=== PATIENT | female | born 1995 | race African-American/Black ===

== ENCOUNTER 2023-01-12 06:01 | Emergency (ER) | payer MEDICAID, SELFPAY ==
[2023-01-12 06:11] VITALS: BP 133/76; PULSE 93; RESP 18; TEMP 36.6; O2SAT 95; BMI 26.6
[2023-01-12 06:54] LABS: MANUAL DIFF FLAG NO
[2023-01-12 06:55] LABS: Basophils Percent Auto 0.2 % (0-2); Eosinophils Percent Auto 0.3 % (0-4); Hematocrit 41.3 % (37.0-47.0); Hemoglobin 13.6 g/dl (12.0-16.0); Imm Gran Abs Auto 0.06 X10*3/uL (0.00-0.03); Imm Gran Pct Auto 0.4 % (0.0-0.4); Lymphocytes Percent Auto 13.4 % (20-40); Mean Corpuscular HGB Conc 32.9 g/dl (31.0-35.0); Mean Corpuscular Hemoglobin 29.6 pg (27.0-33.0); Mean Corpuscular Volume 89.8 fL (80.0-98.0); Mean Platelet Volume 9.1 fL (9.4-12.3); Monocytes Absolute Auto 0.8 X10*3/uL (0.1-1.2); Neutrophils Percent Auto 80.7 % (45-73); Platelet Count 357 X10*3/uL (160-400); Red Cell Distribution Width 13.1 % (11.0-16.0); White Blood Count 14.9 X10*3/uL (4.8-10.8)
--- NOTE | 2023-01-12 07:09 | ED.ABDPAIN ---
HPI - Abdominal Pain General Chief Complaint: Abdominal Pain Stated Complaint: abd and back pain Time Seen by Provider: 01/12/23 06:37 Source: patient and family (Mother, Patricia) Mode of arrival: ambulatory Limitations: no limitations History of Present Illness HPI narrative: 27 year old female who presents emergency department for evaluation abdominal and back pain. Patient states that she had an [place] cold cut sandwich for dinner and 16:00 hours. She states that several hours after eating the sandwich she had a gradual onset abdominal pain which she describes as a sharp pain. It became worse around 23:00 hours. She states the pain improved at around 02:00 hours. When she woke up this morning at 05:00 hours the pain had returned. She states that she is currently having a sharp pressure-like pain in her epigastric area, umbilical area and mid and left back. She had a similar pain on 01/08/2023 and a similar pain in October of 2022. She denied fever, chills, rhinorrhea, sore throat, cough, chest pain, shortness of breath, dyspnea on exertion. She did have associated nausea but no vomiting or diarrhea. She has not noticed any dark black stools or bloody stools. She denied frequency, urgency or dysuria. She did not take any medications for her pain. She has no medical problems and has had no surgeries. Related Data Allergies Allergy/AdvReac Type Severity Reaction Status Date / Time No Known Allergies Allergy Verified 01/12/23 07:10 Review of Systems Review of Systems Yes all other systems are reviewed and are negative [facility] Past Medical History [facility] Narrative: Past medical history: None. Past surgical history: None. Social history: She denies tobacco use. She rarely drinks alcohol she last drank alcohol 2 weeks prior. She denies drug use. Social History Social History Alcohol intake: current Alcohol intake frequency: a few times a month Alcohol type: hard liquor Smoked in Last 30 Days: No Use of substances other than those prescribed or required for medical reasons: No Advance Directives: No Advance Directives Information Provided: Yes Patient : No Physical Exam ED Vital Signs: Vital Signs - 24 hr 01/12/23 06:11 01/12/23 07:24 01/12/23 12:12 Temperature 97.9 F 97.7 F Pulse Rate 93 90 81 Respiratory Rate 18 16 14 Blood Pressure 133/76 138/81 135/79 Pulse Oximetry 95 100 98 Oxygen Delivery Method Room Air Room Air Room Air BMI result Body Mass Index 26.6 Const Other: Well-appearing female patient, pleasant, cooperative, does not appear to be in distress, answers all questions appropriately Orientation/consciousness: oriented to person and oriented to place HENAR Head: Yes normal to inspection, Yes normocephalic and Yes atraumatic Ears: external ears normal General nose exam: Normal external nose present Face and sinus: Yes normal facial exam Mouth: Normal oral and palatal mucosa present Throat: Yes posterior oropharynx normal Eyes General: appearance normal, both eyes and all related structures Pupils: Equal, round and reactive pupils present Neck Neck: Yes normal visual inspection, Yes no lymphadenopathy, Yes trachea midline and Yes supple Chest Chest palpation & inspection: normal inspection of the chest and normal palpation of entire chest wall Resp Effort & Inspection: normal respiratory effort and able to speak in complete sentences Auscultation: clear to auscultation bilaterally Cardio Rate: regular rate Rhythm: regular rhythm Heart sounds: S1 normal heart sound present, S2 normal heart sound present and no murmurs GI Other: Abdomen is soft, the patient has mild epigastric, left upper and left lower quadrant tenderness. There is no right upper quadrant or right lower quadrant tenderness. Patient has normoactive bowel sounds with no rebound, no voluntary or involuntary guarding General: Yes no CVA tenderness Back/Spine/Pelvis Back: no CVA tenderness Skin General skin exam: no rashes or lesions noted Neuro General: oriented to person and oriented to place Cranial nerves: Yes Equal, round and reactive pupils present Cognition (Neuro): normal cognition Motor exam (neuro): 5/5 motor strength present throughout Extrem General: Yes normal to inspection Psych Appearance: grossly normal Speech and movement: Normal speech and movement present Affect: normal affect Attitude: cooperative Medical Decision Making Medical Decision Making MDM Narrative: 27-year-old female who presents emergency department for evaluation left flank, left back, epigastric and left lower quadrant abdominal pain that came on gradually at 16 100 hours, the pain is been sharp and intermittent. The pain resolved at 02:00 hours but returned at 05:00 hours. She states the pain was 10 out 10 at its worst. Patient's vital signs were normal. Patient had mild left CVA tenderness, epigastric tenderness, left upper and left lower quadrant tenderness. I ordered the following tests on the patient: CBC, BMP, liver panel, lipase, urinalysis, quantitative beta-hCG, CT scan of the abdomen pelvis without IV contrast. Patient will be treated with normal saline IV x1 L, Zofran 4 mg IV and Toradol 15 mg IV. 0954: The patient's pain improved with the above treatment. Patient's abdominal exam is still consistent with epigastric and left-sided abdominal tenderness Laboratory evaluation [place] [address] and negative test otherwise unremarkable. CT scan revealed mild gallbladder wall thickening and 4.3 cm left ovarian cyst. I ordered right upper quadrant ultrasound and duplex ultrasound pelvis to rule out ovarian torsion 1413: The patient pelvic ultrasound was consistent with a ovarian cyst with no other acute findings, no torsion The patient's right upper quadrant ultrasound is consistent with acute cholecystitis. The patient is currently pain-free with no abdominal tenderness. I did discuss over tiger text the patient's presentation and did text the abdominal ultrasound reading to our on-call surgeon Dr. Fish He recommended the patient stay on a nonfat diet and to schedule an appointment. Patient was given printed and verbal instructions and discharged home. She was advised return emergency department for symptoms get worse or should help these symptoms that were concerning to her. Differential Diagnosis Differential Diagnoses: The differential diagnosis associated with the presentation includes Differential diagnosis includes but is not limited to renal colic, renal stone, colitis, diverticulitis, appendicitis, cholecystitis Admission/Observation Consideration of admission/observation: Escalation of care including admission/observation considered Consult Healthcare Provider Management of the patient was discussed with: Oracle Sql Developer (Covering surgeon, Dr. Fish) Lab Data MDM Lab Attestation statement: I reviewed the patient's lab results. My interpretation patient's laboratory evaluation is as follows: Elevated white blood count [id number] could represent infectious/inflammatory process verses demargination secondary to pain. Comprehensive metabolic panel was unremarkable. Lipase was normal. Urine test was normal. 01/12/23 06:50 01/12/23 06:50 Labs: Lab Results 01/12/23 01/12/23 01/12/23 Range/Units 06:50 06:50 08:10 WBC 14.9 H (4.8-10.8) X10*3/uL RBC 4.60 (4.20-5.50) X10*6/uL Hgb 13.6 (12.0-16.0) g/dl Hct 41.3 (37.0-47.0) % MCV 89.8 (80.0-98.0) fL MCH 29.6 (27.0-33.0) pg MCHC 32.9 (31.0-35.0) g/dl RDW 13.1 (11.0-16.0) % Plt Count 357 (160-400) X10*3/uL MPV 9.1 L (9.4-12.3) fL Immature Gran % (Auto) 0.4 (0.0-0.4) % Neut % (Auto) 80.7 H (45-73) % Lymph % (Auto) 13.4 L (20-40) % Cabell % (Auto) 5.0 (2-11) % Eos % (Auto) 0.3 (0-4) % Baso % (Auto) 0.2 (0-2) % Lymph # (Auto) 2.0 (1.2-4.9) X10*3/uL Cabell # (Auto) 0.8 (0.1-1.2) X10*3/uL Eos # (Auto) 0.0 (0.0-0.4) X10*3/uL Baso # (Auto) 0.0 (0.0-0.2) X10*3/uL Abs Immat Gran (auto) 0.06 H (0.00-0.03) X10*3/uL Absolute Neuts (auto) 12.0 H (2.0-8.3) x10*3/uL Absolute Nucleated RBC 0.000 (0.0-0.012) X10*3/uL Nucleated RBC % (auto) 0.0 (0.0-0.2) /100WBC Sodium 140 (135-145) mmol/L Potassium 3.8 (3.3-5.1) mmol/L Chloride 106 (96-108) mmol/L Carbon Dioxide 24 (22-29) mmol/L Anion Gap 14 (12-20) BUN 8 L (9-16) mg/dL Creatinine 0.81 (0.5-1.4) mg/dL Estim Creat Clear Calc 102.3 Estimated GFR > 60 Random Glucose 105 (60-115) mg/dL Calcium 9.6 (8.4-10.2) mg/dL Total Bilirubin 0.5 (0.0-1.0) mg/dL Direct Bilirubin 0.1 (0.0-0.5) mg/dL AST 29 (5-31) U/L ALT 40 H (0-31) U/L Alkaline Phosphatase 75 (39-117) U/L Total Protein 8.3 H (6.5-8.0) g/dL Albumin 4.2 (3.5-5.0) g/dL Lipase 25 (8-78) U/L Beta HCG, Quant < 2 mIU/mL Urine Color Urine Appearance Urine pH (5.0-9.0) Ur Specific Troy (1.005-1.025) Urine Protein (Neg-Trace) mg/dL Urine Glucose (UA) (Negative) mg/dL Urine Ketones (Negative) mg/dL Urine Blood (Negative) Urine Nitrite (Negative) Ur Leukocyte Esterase (Negative) Urine RBC (0-2) /HPF Urine WBC (0-5) /HPF Ur Squamous Epith Cells (0-2) /HPF Urine Bacteria (None Seen) Hyaline Casts (0-2) /LPF 01/12/23 Range/Units 08:38 WBC (4.8-10.8) X10*3/uL RBC (4.20-5.50) X10*6/uL Hgb (12.0-16.0) g/dl Hct (37.0-47.0) % MCV (80.0-98.0) fL MCH (27.0-33.0) pg MCHC (31.0-35.0) g/dl RDW (11.0-16.0) % Plt Count (160-400) X10*3/uL MPV (9.4-12.3) fL Immature Gran % (Auto) (0.0-0.4) % Neut % (Auto) (45-73) % Lymph % (Auto) (20-40) % Cabell % (Auto) (2-11) % Eos % (Auto) (0-4) % Baso % (Auto) (0-2) % Lymph # (Auto) (1.2-4.9) X10*3/uL [place]ell # (Auto) (0.1-1.2) X10*3/uL Eos # (Auto) (0.0-0.4) X10*3/uL Baso # (Auto) (0.0-0.2) X10*3/uL Abs Immat Gran (auto) (0.00-0.03) X10*3/uL Absolute Neuts (auto) (2.0-8.3) x10*3/uL Absolute Nucleated RBC (0.0-0.012) X10*3/uL Nucleated RBC % (auto) (0.0-0.2) /100WBC Sodium (135-145) mmol/L Potassium (3.3-5.1) mmol/L Chloride (96-108) mmol/L Carbon Dioxide (22-29) mmol/L Anion Gap (12-20) BUN (9-16) mg/dL Creatinine (0.5-1.4) mg/dL Estim Creat Clear Calc Estimated GFR Random Glucose (60-115) mg/dL Calcium (8.4-10.2) mg/dL Total Bilirubin (0.0-1.0) mg/dL Direct Bilirubin (0.0-0.5) mg/dL AST (5-31) U/L ALT (0-31) U/L Alkaline Phosphatase (39-117) U/L Total Protein (6.5-8.0) g/dL Albumin (3.5-5.0) g/dL Lipase (8-78) U/L Beta HCG, Quant mIU/mL Urine Color Yellow Urine Appearance Clear Urine pH 6.0 (5.0-9.0) Ur Specific [place] 1.010 (1.005-1.025) Urine Protein Negative (Neg-Trace) mg/dL Urine Glucose (UA) Negative (Negative) mg/dL Urine Ketones Negative (Negative) mg/dL Urine Blood Negative (Negative) Urine Nitrite Negative (Negative) Ur Leukocyte Esterase Trace H (Negative) Urine RBC 0-2 (0-2) /HPF Urine WBC 0-5 (0-5) /HPF Ur Squamous Epith Cells 6-10 (0-2) /HPF Urine Bacteria None Seen (None Seen) Hyaline Casts 0-2 (0-2) /LPF Independent Interpretation I performed an independent interpretation of an: CT Scan Radiology Impression Discussion of test interpretation with radiology: I have reviewed the radiologist's reading. Radiologist Impression: CT abdomen pelvis w IV con IMPRESSION: 1. 4.3 cm left adnexal cystic lesion. Consider pelvic ultrasound for further evaluation. 2. Trace gallbladder wall thickening, unclear etiology, consider right upper quadrant ultrasound for further evaluation. 3. No renal calculi or hydronephrosis. Fleischner guidelines were followed. Dictated By:Brigitte Herman MD US ABDOMEN LIMITED for gallbladder and common bile duct only. Provider. CLINICAL INFORMATION: Right upper quadrant and epigastric tenderness. Rule out biliary disease.. COMPARISON: CT abdomen of same day. TECHNIQUE: Real-time imaging of the right upper quadrant abdominal viscera. FINDINGS: GALLBLADDER: The gallbladder wall is thickened to approximate 7 mm in diameter and there is some fluid seen within the gallbladder wall. No pericholecystic fluid is appreciated. Cholelithiasis is present with a 1.8 x 0.9 x 1.3 cm calculus at the neck. About the fundus of the gallbladder there is a hyperechoic structure without internal vascularity measuring approximately 8 x 6 x 9 mm in size which may represent some adherent sludge. No definite tenderness to palpation was elicited however I do not know if patient may have been medicated prior to study. COMMON BILE DUCT: Normal in caliber measuring 0.4 cm in diameter. US/US abdomen limited IMPRESSION: Findings consistent with acute cholecystitis. Dictated By:Feliz Mccann MD US pelvic and transvaginal IMPRESSION: 4.5 cm maximum dimension simple left ovarian cyst. No evidence of ovarian torsion. Small amount of free fluid about the right adnexa. Dictated By:Feliz Mccann MD Independent Historian Clinical information obtained from an independent historian. History obtained from or confirmed by: Parent Medications Administered Discontinued Medications Generic Name Dose Route Start Last Admin Trade Name Freq PRN Reason Stop Dose Admin Sodium Chloride 1,000 mls @ 999 mls/hr 01/12/23 07:19 01/12/23 08:49 Ns IV 01/12/23 08:19 Infused .Q1H1M STA Infusion Iohexol 85 ml 01/12/23 08:59 01/12/23 09:00 Iohexol 350 Mg/Ml 100 Ml Infus..Btl IV 01/12/23 09:00 85 ml ONCE ONE Administration Ketorolac Tromethamine 15 mg 01/12/23 07:19 01/12/23 07:38 Ketorolac Tromethamine 15 Mg/Ml Vial IVPUSH 01/12/23 07:20 15 mg ONCE STA Administration Ondansetron HCl 4 mg 01/12/23 07:19 01/12/23 07:39 Ondansetron Hcl 4 Mg/2 Ml Vial IVPUSH 01/12/23 07:20 4 mg ONCE ONE Administration Discharge Plan Discharge Clinical Impression: Acute cholecystitis, Gallstone Patient Disposition: Home, Self-Care Instructions: Cholecystitis (ED), Low Fat Diet (ED) Additional Instructions: Your blood work was unremarkable. Your ultrasound of your pelvis revealed a left ovarian cyst. This will need to be followed up by your brake coupler dinkey. If you do not have a brake coupler dinkey you can see our brake coupler dinkey, Dr. Allen. Your ultrasound of your abdomen is consistent with inflammation of your gallbladder wall and gallstones. I did speak to our on-call surgeon, Dr. Fish. He wants you to stay on a low-fat diet. Call his office on Saturday morning and he will see you as an outpatient to discuss removing her gallbladder. Take ibuprofen 200 mg pills, 2 pills every 6 hours as needed for pain. Take Tylenol (acetaminophen) 500 mg pills, 2 pills every 6 hours as needed for pain. Please return to the emergency department if your symptoms get worse or if you develop any symptoms that are concerning to you. Referrals: Johan Fish MD [Physician] - 3 days (Cholecystitis with gallstones) Andres Allen MD [Physician] - 2 weeks (4.3 cm left ovarian cyst follow-up)
[2023-01-12 07:18] LABS: Alanine Aminotransferase 40 U/L (0-31); Albumin Level 4.2 g/dL (3.5-5.0); Alkaline Phosphatase 75 U/L (39-117); Anion Gap 14 (12-20); Aspartate Amino Transferase 29 U/L (5-31); Bilirubin Direct 0.1 mg/dL (0.0-0.5); Bilirubin Total 0.5 mg/dL (0.0-1.0); Blood Urea Nitrogen 8 mg/dL (9-16); Calcium 9.6 mg/dL (8.4-10.2); Carbon Dioxide 24 mmol/L (22-29); Chloride 106 mmol/L (96-108); Creatinine Clr Calc Pharmacy 102.3; Estimated Glomerular Filt Rate > 60; Glucose Random 105 mg/dL (60-115); Lipase 25 U/L (8-78); Potassium 3.8 mmol/L (3.3-5.1); Sodium 140 mmol/L (135-145); Total Protein 8.3 g/dL (6.5-8.0)
[2023-01-12 07:24] VITALS: BP 138/81; PULSE 90; RESP 16; TEMP 36.5; O2SAT 100
[2023-01-12] MEDS: Ketorolac Tromethamine 15 MG/ML VIAL IVPUSH (07:38)
[2023-01-12] MEDS: 0.9 % Sodium Chloride 1,000 ML 999 ML IV (07:39)
[2023-01-12] MEDS: ondansetron HCL 4 MG/2 ML VIAL IVPUSH (07:39)
--- NOTE | 2023-01-12 07:44 | PC.NURSE ---
pt a&o x 3, skin appropriate for ethnicity, respirations even and unlabored. reports upper abdominal pain that radiates into lower back that gets worse with food. abdomen non tender with active bowel sounds in all 4 quadrants.
[2023-01-12] MEDS: iohexoL 350 MG/ML 100 ML INFUS..BTL 85 ML IV (09:00)
[2023-01-12 12:12] VITALS: BP 135/79; PULSE 81; RESP 14; O2SAT 98
== END 2023-01-12 14:45 | disposition home or self-care (01) ==
PROVIDERS: Emergency Provider Emergency Medicine Emergency Medical Services
DX: K80.00 Calculus of gallbladder with acute cholecystitis without obstruction (principal)
CPT/HCPCS: 36415; 74177; 76705; 76830; 76856; 80048; 80076; 81001; 83690; 84702; 85025; 93975; 96361; 96374; 96375; 99284; 99285; J1885; J2405; Q9967

== ENCOUNTER → 2023-01-17 13:51 | Outpatient (BNVA) | payer MEDICAID, SELFPAY | PROVIDERS: Visit Provider Surgery | DX: K80.00 Calculus of gallbladder with acute cholecystitis without obstruction (principal) | CPT/HCPCS: 99202 ==

== ENCOUNTER 2023-01-21 07:52 | Day surgery (SDC) | payer MEDICAID, SELFPAY ==
[2023-01-21] VITALS (9 sets, daily range): BP systolic 112–139; BP diastolic 43–84; PULSE 67–94; RESP 16–18; TEMP 36.7–37.2; O2SAT 94–98; BMI 32.8
--- NOTE | 2023-01-21 08:27 | PC.NURSE ---
Dr. Fish aware that patient had 600 mg Motrin HS and approx. EOD prior. Okay to proceed.
--- NOTE | 2023-01-21 08:57 | HO.ANESPROP2 ---
HPI - Anesthesia Eval Consult details Narrative: 27 yo F presenting for lap john. Negative urine HCG today. PMFSH Active Problems Active Problems: All Active Problems (Updated 01/17/23 @ 14:33 by Johan Fish MD) Cholecystitis, acute with cholelithiasis (Acute) Past Medical History Functional capacity: independent ambulation Family History Family History Maternal Grandfather Prostate cancer Family history of problems with anesthesia: No Surgical History History of Problems with Anesthesia: No Social History Social History Alcohol intake: current Alcohol intake frequency: a few times a month Alcohol type: hard liquor Patient Tobacco Use Status: Never used Tobacco Are you DNR?: No Advance Directives: No Advance Directives Information Provided: Yes Nutrition Risks: No Nutritional Risk FDLMP: finished yesterday Meds Allergies Allergy/AdvReac Type Severity Reaction Status Date / Time No Known Allergies Allergy Verified 01/17/23 14:09 Active Medications: Current Medications Lactated Ringer's (Lr) 1,000 mls @ 100 mls/hr IVCONT .Q10H JAYDEN Last Admin: 01/21/23 08:11 Dose: 100 mls/hr Home Medications Medication Instructions Recorded Confirmed Last Taken Type No Known Home Meds 01/17/23 01/17/23 Unknown History Exam Exam Date and Time: January 21, 2023 0857 Height,Weight and Vital Signs: Height 5 ft 5 in Weight 89.358 kg Last Vital Signs Temp 98.2 F 01/21/23 08:19 Pulse 94 01/21/23 08:19 Resp 18 01/21/23 08:19 BP 115/82 01/21/23 08:19 Pulse Ox 98 01/21/23 08:19 O2 Del Method Room Air 01/21/23 08:19 Pertinent Lab Results Pertinent Lab Results: Laboratory Tests 01/21/23 Unknown Urine Test NEGATIVE Airway Mallampati Class: I TM Dist: >3cm Neck ROM: Full Loose/Missing/Broken Teeth: Yes (Broken molar right lower jaw) Heart: S1S2 Lungs: CTAB Assessment and Plan Assessment Anesthesia Assessment: Anesthesia Plan Discussed and Chart Reviewed Final Anesthetic Review Family History of Problems with Anesthesia: No History of Problems with Anesthesia: No NPO: Yes ASA Class: II Final Preanesthetic Review: No Changes in Pt Med Stat, Meds/Allgs Chart Reviewed, Consent Obtained/Reviewed and Anes Risks/Benef Reviewed Patient Risk: Low Procedure Risk: Low Anesthetic Plan Anesthetic Plan: GA and Agree w/ Assess. and Plan Disposition: Standard PACU
--- NOTE | 2023-01-21 10:22 | W.PM.OPN ---
Operative Note Operative Note Date of Service: 01/21/23 Narrative: Preoperative diagnosis: Acute cholecystitis Postoperative diagnosis: Same Procedure: Laparoscopic cholecystectomy Surgeon: Johan Fish MD Clay Roaster: DALTON Wetzel Anesthesia: General endotracheal Indications for procedure: 27-year-old female patient presenting with acute onset of abdominal pain in the right upper quadrant multiple episodes. The pain radiates to the back associated with food intake. workup with ultrasound revealed gallstones within the neck of the gallbladder. Operative findings: Evidence of gallbladder inflammation with adhesions to the undersurface of the gallbladder. Single large gallstone at the base of the gallbladder. Specimen: gallbladder Estimated blood loss: Less than 1 mL Complications: non Procedure details: Patient was brought to the OR and placed in a supine position. After administering general anesthesia the patient's abdomen was prepped with ChloraPrep and draped in a sterile fashion. Local anesthesia consisting of 0.5% Sensorcaine without epinephrine was infiltrated in a periumbilical region. A 5 mm incision was made above the umbilicus in a transverse fashion. The Veress needle was then inserted while elevating abdominal cavity with towel clips. After positive drop test the abdomen was insufflated to a pressure of 15 mm of mercury. The Veress needle was then removed and a 5 mm trocar inserted. The camera was inserted in the abdomen explored. A 12 mm trocar was then placed in the epigastrium. Two 5 mm trocars placed in the right upper quadrant by the registrar assistant. The patient was placed in reverse Trendelenburg positioning and rotated to the left. The gallbladder was grasped with the fundus and retracted cephalad by the registrar assistant. The infundibulum was then grasped and retracted away from the liver bed, also by the registrar assistant. The Dolphin dissected was then used by the surgeon to dissect the peritoneum off the infundibulum to reveal the junction with the cystic duct. Cystic artery was noted slightly medial and posterior to the cystic duct. After obtaining a critical view the cystic duct was doubly clipped and divided. The cystic artery was then doubly clipped and divided. The gallbladder was then dissected off the liver bed using electrocautery with an L hook. Hemostasis was assured all times using the electrocautery. When the gallbladder is completely dissected off the liver bed was placed in an Endo-Catch bag and brought out through the epigastric incision. The gallbladder was sent to pathology for further examination. The abdomen was then re-examined. The liver bed was irrigated and suctioned dry. No bleeding or bile leak could be identified. CO2 was then evacuated and all trocars removed. Fascia was closed at the epigastric incision using a [id number] Polysorb suture. Skin was closed in all incisions using a subcuticular 4 0 Polysorb suture by both the surgeon and registrar assistant. Sterile dressings consisting of Steri-Strips, 2 x 2 gauze, and Tegaderm were then applied. The patient tolerated the procedure well. Sponge instrument and needle counts reported as correct. The patient was transferred to PACU in stable condition.
== END 2023-01-21 12:21 | disposition home or self-care (01) ==
PROVIDERS: Visit Provider Surgery
PROC: 0FT44ZZ Resection of Gallbladder, Percutaneous Endoscopic Approach (ICD-10-PCS; CPT 47562; principal; 2023-01-21 10:30)
DX: K80.10 Calculus of gallbladder with chronic cholecystitis without obstruction (principal); K82.8 Other specified diseases of gallbladder
CPT/HCPCS: 47562; 81025; 88304; 99211; J1100; J2250; J2405; J3010

== ENCOUNTER → 2023-01-21 07:52 | Outpatient (BNV) | payer MEDICAID, SELFPAY | PROVIDERS: Visit Provider Surgery | DX: K80.00 Calculus of gallbladder with acute cholecystitis without obstruction (principal) | CPT/HCPCS: 47562 ==

== ENCOUNTER 2023-01-29 15:33 | Outpatient (AMB) | payer MEDICAID, SELFPAY ==
--- NOTE | 2023-01-29 15:43 | MHC.OFFVIS ---
Intake Vital Signs 01/29/23 15:51 Height 5 ft 5 in Weight 194 lb 8 oz BMI 32.4 BP 149/71 H Blood Pressure Location Lt brachial Position Sitting Pulse 93 Intake Visit Reasons: S/P lap john Intake Note: Patient is seen in office for post op assessment post laparoscopic cholecystectomy. Patient c/o: eating well, no concerns with the bowels, no concerns at the time of visit Nurses Superintendent Required: No Accompanied by: Family/Other Allergies No Known Allergies Allergy (Verified 01/29/23 15:48) Medication List - Last Reconciled 01/30/23 by Johan Fish MD No Known Home Meds HPI HPI Comments History of Present Illness Details 27-year-old female patient status post laparoscopic cholecystectomy for acute cholecystitis due to cholelithiasis. She tolerated the procedure well and reports feeling generally well. She did have some right shoulder pain postoperatively for the 1st 3 days but this has now resolved. Her appetite is still reduced but she denies nausea or vomiting, diarrhea or constipation. She has some soreness in the upper incision but denies any bleeding or discharge. [facility] Surgical History Hx laparoscopic cholecystectomy (01/21/23) Family History Maternal Grandfather Prostate cancer Social History Alcohol intake: current Alcohol intake frequency: a few times a month Alcohol type: hard liquor Patient Tobacco Use Status: Never used Tobacco Physical Exam Vital Signs: Last Vital Signs Pulse 93 01/29/23 15:51 BP 149/71 H 01/29/23 15:51 BMI result Body Mass Index 32.4 Const General: no acute distress and well developed Nutritional Appearance: well nourished Orientation/consciousness: patient oriented x3 Limitations: no limitations Resp Effort & Inspection: normal respiratory effort GI Other: Trocar incisions are clean, dry, and intact. Abdomen is soft and nondistended, non tympanitic. Skin Other: Warm, dry, no rash Neuro General: patient oriented x3 Extrem Other: No pedal edema Assessment & Plan Assessment & Plan (1) Cholecystitis, acute with cholelithiasis: Code(s): K80.00 - Calculus of gallbladder with acute cholecystitis without obstruction Plan Patient returns 1 week following laparoscopic cholecystectomy. She tolerated the procedure well and feels much improved. Her wounds are clean, dry, and intact without evidence of infection or hernia. She should continue to avoid lifting greater than 10 lb for the next week. She should also avoid fatty/greasy foods for the next 4 weeks. She should follow up p.r.n.. Coding Level of Care Code Global (04202) Diagnoses Cholecystitis, acute with cholelithiasis K80.00
[2023-01-29 15:51] VITALS: BP 149/71; PULSE 93; BMI 32.4
== END 2023-01-29 15:55 | disposition home or self-care (01) ==
PROVIDERS: Visit Provider Surgery
DX: K80.00 Calculus of gallbladder with acute cholecystitis without obstruction (principal)
CPT/HCPCS: 99024

== ENCOUNTER → 2023-01-29 15:33 | Outpatient (BNVA) | payer MEDICAID, SELFPAY | PROVIDERS: Visit Provider Surgery ==

== ENCOUNTER 2023-04-01 12:43 | Outpatient (AMB) | payer MEDICAID, SELFPAY ==
--- NOTE | 2023-04-01 12:53 | MHC.OFFVIS ---
Intake Vital Signs 04/01/23 12:54 Height 5 ft 3 in Weight 194 lb BMI 34.4 BP 118/76 Intake Visit Reasons: ER follow up Commercial Sales Representative Required: No Information Interpreted: non-clinical & clinical Resident Care Technician: Resident Care Technician Present (Janet) Allergies No Known Allergies Allergy (Verified 04/01/23 12:56) Is last menstrual period known: Yes Last menstrual period: 03/25/23 Post menopausal: No HPI HPI Comments History of Present Illness Details Presenting for follow-up from ED visit on 01/12/23 where the patient was diagnosed incidentally with a left simple 4.5 cm ovarian cyst. The patient was diagnosed in the emergency room with cholelithiasis and underwent cholecystectomy. Since then, the patient does not have any abdominal or pelvic pain, no other symptoms. No vaginal discharge or abnormal uterine bleeding. Pelvic ultrasound done on 01/12/2023 showed the following: IMPRESSION: 4.5 cm maximum dimension simple left ovarian cyst. No evidence of ovarian torsion. Small amount of free fluid about the right adnexa. PFSH Surgical History Hx laparoscopic cholecystectomy (01/21/23) Family History Maternal Grandfather Prostate cancer Social History Alcohol intake: current Alcohol intake frequency: a few times a month Alcohol type: hard liquor Patient Tobacco Use Status: Never used Tobacco Female Reproductive History Menstrual Age of Menarche: 8 Duration of menses: 6-7 days Date of last menstrual period: 03/25/23 control method: none Total pregnancies: 0 Review of Systems Const All systems reviewed & are unremarkable except as noted in HPI and below Physical Exam Vital Signs: Last Vital Signs BP 118/76 04/01/23 12:54 BMI result Body Mass Index 34.4 General: Yes no CVA tenderness External Female Exam: normal external appearance and normal appearance of the urethra Speculum Exam - Vagina: normal appearance of the vagina, normal palpation, no lesions and no masses Speculum Exam - Cervix: normal appearance of the cervix, normal palpation, no lesions, no masses and nontender Bimanual exam- vagina & uterus: normal bimanual exam, normal palpation, uterine size normal, normal palpation, uterine shape normal, No Cervical tenderness present and non-tender Bimanual Exam- Adnexa, other: normal adnexae Back/Spine/Pelvis Back: no CVA tenderness Assessment & Plan Assessment & Plan (1) Ovarian cyst: Code(s): N83.209 - Unspecified ovarian cyst, unspecified side Plan: Repeat pelvic ultrasound. Instructions given the patient to call or go to emergency room in case of pelvic pain, heavy vaginal bleeding, fever above 1.4, nausea or vomiting and to schedule a 2 week ultrasound follow-up appointment. All questions answered, the patient verbalized understanding Orders: Orders US pelvic and transvaginal Today N83.209 - Unspecified ovarian cyst, unspecified side Coding Level of Care Code New Pt Level 3 (39607) Diagnoses Ovarian cyst N83.209
[2023-04-01 12:54] VITALS: BP 118/76; BMI 34.4
== END 2023-04-01 14:25 | disposition home or self-care (01) ==
PROVIDERS: Visit Provider Obstetrics & Gynecology
DX: N83.209 Unspecified ovarian cyst, unspecified side (principal)
CPT/HCPCS: 99203

== ENCOUNTER 2023-04-01 12:43 | Outpatient (REF) | payer MEDICAID, SELFPAY ==
[2023-04-02 09:54] LABS: CT PCR NOT DETECTED (Not Detect.); NG PCR NOT DETECTED (Not Detect.)
== END 2023-04-01 12:44 | disposition home or self-care (01) ==
LOC: HO.LNP 12:43
PROVIDERS: Visit Provider Obstetrics & Gynecology
DX: Z20.2 Contact with and (suspected) exposure to infections with a predominantly sexual mode of transmission (principal)
CPT/HCPCS: 0353U

== ENCOUNTER 2023-04-12 13:34 | Outpatient (REF) | payer MEDICAID, SELFPAY ==
--- NOTE | ~2023-04-12 | US_ITS ---
EXAMINATION: US PELVIS CLINICAL INFORMATION: Ovarian cyst follow-up. COMPARISON: Pelvic ultrasound 01/12/2023. TECHNIQUE: Ultrasound of the pelvis is performed using both transabdominal and transvaginal transducers along with Doppler. Transvaginal imaging is performed due to inadequate visualization transabdominally. FINDINGS: Uterus: The uterus is anteverted and measures 7.9 x 2.7 x 3.7 cm. The uterus is anteverted. The double wall endometrial thickness is 13 mm. The uterus is smooth in contour and has normal myometrial echogenicity. No visible fibroid. Adnexa: Right ovary measures 3.6 x 2.5 x 2.5 cm, volume 12 mL. Spectral Doppler with normal waveform. The left ovary measures 5.0 x 3.6 x 3.8 cm, volume 35 mL. 4.1 x 2.8 x 3.3 cm simple cyst in the left ovary, previously measuring 4.5 x 2.9 x 4.2 cm. Spectral Doppler with normal waveform. No pelvic free fluid. US/US pelvic and transvaginal IMPRESSION: 4.1 cm simple cyst in the left ovary, decreased from 4.5 cm.
== END 2023-04-12 13:35 | disposition home or self-care (01) ==
LOC: HO.US 13:34
PROVIDERS: Visit Provider Obstetrics & Gynecology
DX: N83.209 Unspecified ovarian cyst, unspecified side (principal)
CPT/HCPCS: 76830; 76856

== ENCOUNTER 2023-06-18 11:44 | Outpatient (AMB) | payer MEDICAID, SELFPAY ==
--- NOTE | 2023-06-18 11:47 | A.OFFVIS_ITS ---
Intake Vital Signs 06/18/23 11:49 Height 5 ft 3 in Weight 191 lb 12.835 oz BMI 34.0 BP 118/72 Intake Visit Reasons: Ultrasound follow up/DO NOT RS Market Maker Required: No Information Interpreted: non-clinical & clinical Accompanied by: Self / Same As Patient Allergies No Known Allergies Allergy (Verified 06/18/23 11:50) Is last menstrual period known: Yes Last menstrual period: 06/18/23 HPI HPI Comments History of Present Illness Details Presenting for follow-up ultrasound for previous 4.5 cm simple ovarian cyst seen on ultrasound few months ago. Recent follow-up pelvic ultrasound showed the following: Uterus: The uterus is anteverted and measures 7.9 x 2.7 x 3.7 cm. The uterus is anteverted. The double wall endometrial thickness is 13 mm. The uterus is smooth in contour and has normal myometrial echogenicity. No visible fibroid. Adnexa: Right ovary measures 3.6 x 2.5 x 2.5 cm, volume 12 mL. Spectral Doppler with normal waveform. The left ovary measures 5.0 x 3.6 x 3.8 cm, volume 35 mL. 4.1 x 2.8 x 3.3 cm simple cyst in the left ovary, pr eviously measuring 4.5 x 2.9 x 4.2 cm. Spectral Doppler with normal wav eform. The patient is doing well with no complaint, no pelvic pain and or any other concerns. [facility] Surgical History Hx laparoscopic cholecystectomy (01/21/23) Family History Maternal Grandfather Prostate cancer Social History Alcohol intake: current Alcohol intake frequency: a few times a month Alcohol type: hard liquor Patient Tobacco Use Status: Never used Tobacco Female Reproductive History Menstrual Age of Menarche: 8 Date of last menstrual period: 06/18/23 Review of Systems Const All systems reviewed & are unremarkable except as noted in HPI and below Reports as per HPI and Reports no additional complaints GI Reports no additional complaints Reports no additional complaints Physical Exam Vital Signs: Last Vital Signs BP 118/72 06/18/23 11:49 BMI result Body Mass Index 34.0 Assessment & Plan Assessment & Plan (1) Ovarian cyst: Code(s): N83.209 - Unspecified ovarian cyst, unspecified side Plan: Discussed with the patient the results the follow-up ultrasound simple ovarian cyst decreased in size 4.2 cm. Signs and symptoms of ovarian rupture and/or torsion were discussed with the patient she is to call or go to emergency room in case of acute pelvic pain, vaginal bleeding, nausea or vomiting otherwise follow-up for annual exam. All questions answered, the patient verbalized understanding. Coding Level of Care Code Est Pt Level 3 (36441) Diagnoses Ovarian cyst N83.209
[2023-06-18 11:49] VITALS: BP 118/72; BMI 34.0
== END 2023-06-18 11:56 | disposition home or self-care (01) ==
LOC: HO.HWS 11:44
PROVIDERS: PCP Nurse Practitioner Family; Visit Provider Obstetrics & Gynecology
DX: N83.209 Unspecified ovarian cyst, unspecified side (principal)
CPT/HCPCS: 99213

== ENCOUNTER → 2023-06-18 11:44 | Outpatient (BNVA) | payer MEDICAID, SELFPAY | PROVIDERS: Visit Provider Obstetrics & Gynecology | DX: N83.209 Unspecified ovarian cyst, unspecified side (principal) | CPT/HCPCS: 99212 ==

== ENCOUNTER 2023-10-02 08:16 | Outpatient (AMB) | payer MEDICAID, SELFPAY ==
--- NOTE | 2023-10-02 08:44 | MHC.OFFVIS ---
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 No complaints. Last Pap/HPV unknown PFSH Surgical History Hx laparoscopic cholecystectomy (01/21/23) Family History Maternal Grandfather Prostate cancer Social History Household Members Other:: sister Housing: Apartment Alcohol intake: current Alcohol intake frequency: a few times a month Alcohol type: hard liquor Patient Tobacco Use Status: Never used Tobacco Current occupational status: unemployed Sexual orientation: Straight/Heterosexual Gender identity: Female Female Reproductive History Menstrual Age of Menarche: 8 Date of last menstrual period: 09/20/23 control method: none Total pregnancies: 0 Review of Systems Const All systems reviewed & are unremarkable except as noted in HPI and below Card Reports as per HPI Resp Reports as per HPI GI Reports as per HPI and Reports no additional complaints Reports as per HPI Physical Exam Const General: cooperative, healthy appearing and comfortable Chest Chest palpation & inspection: normal inspection of the chest and normal palpation of entire chest wall Breast/axilla inspection: normal inspection of the breasts and normal inspection of the axillae Breast/axilla palpation: normal palpation of the breasts, normal palpation of the axillae and no axillary lymphadenopathy Resp Effort & Inspection: normal respiratory effort Auscultation: clear to auscultation bilaterally Percussion: percussion normal Cardio Palpation: normal PMI Rate: regular rate Rhythm: regular rhythm Heart sounds: no murmurs and no rubs Peripheral pulses: Peripheral pulses 2+ throughout GI Inspection: Yes normal to inspection Palpation (GI): Soft to palpation, nontender, no guarding, not rigid and No hepatosplenomegaly present Percussion: Yes normal to percussion Auscultation: normal bowel sounds Rectal Exam - Female: deferred General: Yes bladder normal to palpation External Female Exam: No lesion Speculum Exam - Vagina: normal appearance of the vagina, normal palpation, normal vaginal discharge and not erythematous Speculum Exam - Cervix: normal appearance of the cervix and normal palpation Bimanual exam- vagina & uterus: normal bimanual exam, normal palpation, uterine size normal, bladder normal to palpation, consistency normal and normal palpation Bimanual Exam- Adnexa, other: normal adnexae, no masses and no tenderness Assessment & Plan Assessment & Plan (1) Well woman exam: Code(s): Z01.419 - Encounter for gynecological examination (general) (routine) without abnormal findings Plan: Cotesting done. Counseled the patient about the recommended dietary allowance of 1000 mg of Calcium & 600 IU of vitamin D. The patient was instructed to perform monthly self-breast exams and to schedule an annual exam in a year; All questions answered and the patient verbalized understanding. Instructed the patient to schedule annual exam in a year Coding Level of Care Code Est Pt Prev Care 18-39y(39435) Diagnoses Well woman exam Z01.419
[2023-10-02 08:45] VITALS: BP 118/76; BMI 36.5
== END 2023-10-02 09:06 | disposition home or self-care (01) ==
PROVIDERS: Visit Provider Obstetrics & Gynecology
DX: Z01.419 Encounter for gynecological examination (general) (routine) without abnormal findings (principal)
CPT/HCPCS: 99395

== ENCOUNTER 2023-10-02 08:16 | Outpatient (REF) | payer MEDICAID, SELFPAY ==
[2023-10-08 12:38] LABS: HPV mRNA E6/E7 rflx Not Detected (Not Detected)
== END 2023-10-02 08:17 | disposition home or self-care (01) ==
LOC: HO.LNP 08:16
PROVIDERS: Visit Provider Obstetrics & Gynecology
DX: Z01.419 Encounter for gynecological examination (general) (routine) without abnormal findings (principal); Z11.51 Encounter for screening for human papillomavirus (HPV)
CPT/HCPCS: 87624; 88142; 99395